=== PATIENT | female | born 1980 | race Caucasian/White ===

== ENCOUNTER 2016-12-16 17:08 | Outpatient (CLI) | payer OTHER | END 2016-12-16 17:09 | disposition home or self-care (01) | DX: R07.89 Other chest pain (principal) ==

== ENCOUNTER 2018-01-05 10:25 | Day surgery (SDC) | payer OTHER ==
[~2018-01-05 10:25] MED LIST: BACITRACIN OINT TOP ONE; BUPIVACAINE 0.25% PF 30 ML VIAL ONE; LIDOCAINE 1% 50 ML MDV ONE; LIDOCAINE MPF 1%-EPI 1:200000 30 ML VIAL ONE; ceFAZolin 2 GM/50 ML 2 GM/50 ML BAG IV ONE
[2018-01-05 10:48] LABS: HCG UR QUAL NEGATIVE
[2018-01-05] MEDS ORDERED: LACTATED RINGERS 1,000 ML IV ONE ×2 (10:49→14:00)
[2018-01-05] MEDS ORDERED: LIDOCAINE MPF 1%-EPI 1:200000 30 ML VIAL SUBQ ONE (14:05)
[2018-01-05] MEDS ORDERED: BACITRACIN ZINC OINT 15 GM TOP ONE (14:05)
[2018-01-05] MEDS ORDERED: BUPIVACAINE 0.25% PF 30 ML VIAL SUBQ ONE ×2 (14:05)
[2018-01-05] MEDS ORDERED: PROPOFOL 200 MG/20 ML VIAL IVP ONE (14:17)
[2018-01-05] MEDS ORDERED: LIDOCAINE-MPF 2% 5 ML VIAL IM ONE (14:17)
--- NOTE | 2018-01-05 14:46 | OPERATIVE REPORT ---
Operative Report - General Procedure Date: 01/05/18 Pre-Op Diagnosis: anal skin tags, external hemorrhoids Procedure Performed: Excision of anal skin tags and external hemorrhoids - Procedure Note Primary Surgeon: Hannah Estimated Blood Loss (mL): 5 - Other Other Information/Narrative: After obtaining informed consent from the patient she was brought into the operating room and positioned on the operating table in lithotomy position taking note of pressure points. She was administered sedation and IV antibiotics. She was prepped and draped in the usual sterile fashion and a timeout was taken according to protocol.The patient was not tolerating sedation well and kept moving prior to starting procedure and subsequently an LMA was placed. 30 cc of local anesthetic was injected. I then inspected to the anal canal and she was noted to have a large skin tag in the 12 o'clock position and external hemorrhoids in the right posterior and left lateral positions. A clamp was placed on the skin tag in the 12 o'clock position extending down to an external hemorrhoid. The skin tag and hemorrhoid were excised using a 15 blade to divide the skin and electrocautery to divide the underlying subcutaneous tissue. The incision was then closed with a running 3-0 chromic. The external hemorrhoids in the left lateral and right posterior positions were addressed in a similar manner by clamping the hemorrhoids and excising the skin with a 15 blade and the subcutaneous tissue with electrocautery. Both incisions were also closed with running 3-0 chromic. The anal cavity was then irrigated and hemostasis was noted to be achieved. The surgeon's finger was inserted into the anal canal ensuring adequate size opening of the anal canal in this was noted to have been achieved. Bacitracin fluffs and mesh underwear were then applied. The patient was subsequently taken to the recovery room in stable condition. Complications: None
[2018-01-05] MEDS ORDERED: ONDANSETRON 4 MG/2 ML VIAL ONE (14:51)
[2018-01-05] MEDS ORDERED: KETOROLAC 30 MG/ML VIAL ONE (15:21)
[2018-01-05] MEDS ORDERED: oxyCOD/ACETAMIN 5 MG/325 MG TABLET PO ONE (15:46)
[2018-01-05 16:01] VITALS: BP 122/79
== END 2018-01-05 10:26 | disposition home or self-care (01) ==
LOC: SDS 10:25
PROVIDERS: ATTEND Surgery
PROC: 06BY0ZC Excision of Hemorrhoidal Plexus, Open Approach (ICD-10-PCS; principal; 2018-01-05 11:45)
DX: K64.4 Residual hemorrhoidal skin tags (principal)
CPT/HCPCS: 46250; 81025; A9270; J0690; J7120

== ENCOUNTER 2021-01-01 08:00 | Outpatient (CLI) | payer OTHER ==
[2021-01-01 19:44] LABS: BASOPHILS % (AUTO) 0.5 %; EOSINOPHILS # (AUTO) 0.1 10^3/uL (0.0-0.7); EOSINOPHILS % (AUTO) 1.5 %; HGB - HEMOGLOBIN 13.7 g/dL (12.0-16.0); LYMPHOCYTES # (AUTO) 2.3 10^3/uL (1.5-3.5); LYMPHOCYTES % (AUTO) 39.1 %; MEAN CORPUSCULAR HEMOGLOBIN 30.2 pg (27.0-31.0); MEAN CORPUSCULAR HGB CONC 33.4 g/dL (32.0-36.0); MEAN CORPUSCULAR VOLUME 90.3 fL (81.0-99.0); MEAN PLATELET VOLUME 9.8 fL (7.9-10.8); MONOCYTES # (AUTO) 0.5 10^3/uL (0.0-1.0); MONOCYTES % (AUTO) 8.5 %; NEUTROPHILS # (AUTO) 2.9 10^3/uL (1.5-6.6); NEUTROPHILS % (AUTO) 50.1 %; PLT - PLATELET COUNT 317 10^3/uL (130-450); RED BLOOD COUNT 4.54 10^6/uL (4.20-5.40); RED CELL DISTRIBUTION WIDTH 13.4 % (12.0-15.0); WHITE BLOOD COUNT 5.9 x10^3/uL (4.8-10.8)
[2021-01-01 20:04] LABS: ALBUMIN 4.5 g/dL (3.2-5.5); ALBUMIN/GLOBULIN RATIO 1.4 (1.0-2.2); BILIRUBIN,TOTAL 0.2 mg/dL (0.2-1.0); CALCIUM 9.4 mg/dL (8.5-10.3); CREATININE 0.7 mg/dL (0.4-1.0); POTASSIUM 3.7 mmol/L (3.5-5.0); TOTAL PROTEIN 7.8 g/dL (6.7-8.2)
[2021-01-01 20:17] LABS: THYROID STIMULATING HORMONE 3.6 uIU/mL (0.34-5.60)
== END 2021-01-01 23:59 | disposition home or self-care (01) ==
LOC: LAB.S 08:00
PROVIDERS: ATTEND Physician Assistant Medical
DX: R00.2 Palpitations (principal)
CPT/HCPCS: 36415; 80053; 84443; 85025

== ENCOUNTER 2021-01-03 14:10 | Outpatient (CLI) | payer OTHER ==
--- NOTE | 2021-01-04 13:47 | XRAY Report ---
PROCEDURE: Shoulder 2 View LT INDICATIONS: SHOULDER IMPINGEMENT SYNDROME, LEFT TECHNIQUE: 3 views of the shoulder were acquired. COMPARISON: None. FINDINGS: Bones: No acute fractures or dislocations. Coracoclavicular and acromioclavicular intervals are main tained. No suspicious bony lesions. Visualized ribs appear intact. Soft tissues: No suspicious soft tissue calcifications. IMPRESSION: Left shoulder without acute radiographic abnormalities. No radiographic findings for sig nificant degenerative change. Consider further evaluation with MRI if there is concern for internal s oft tissue derangement. Reviewed by: Darci Mcdonough MD on 01/04/2021 1:46 PM PDT Approved by: Darci Mcdonough MD on 01/04/2021 1:46 PM PDT Station ID: [id number]
== END 2021-01-03 14:11 | disposition home or self-care (01) ==
LOC: DI.S 14:10
PROVIDERS: ATTEND Physician Assistant
DX: M75.42 Impingement syndrome of left shoulder (principal)

== ENCOUNTER 2021-02-28 13:16 | Outpatient (CLI) | payer OTHER ==
[2021-03-02 03:58] LABS: PROGESTERONE <0.5 ng/mL
[2021-03-02 04:17] LABS: ESTRADIOL 62 pg/mL
== END 2021-02-28 13:17 | disposition home or self-care (01) ==
LOC: LAB.S 13:16
PROVIDERS: ATTEND Physician Assistant
DX: Z78.0 Asymptomatic menopausal state (principal); R00.2 Palpitations
CPT/HCPCS: 36415; 82670; 83735; 84144

== ENCOUNTER 2022-12-27 08:00 | Outpatient (CLI) | payer BC, OTHER ==
[2022-12-27 23:01] LABS: BACTERIAL VAGINOSIS DNA POSITIVE (NEGATIVE); CANDIDA GLABRATA DNA NEGATIVE (NEGATIVE); CANDIDA GROUP DNA NEGATIVE (NEGATIVE); CANDIDA KRUSEI DNA NEGATIVE (NEGATIVE); TRICHOMONAS VAGINALIS DNA NEGATIVE (NEGATIVE)
== END 2022-12-27 23:59 | disposition home or self-care (01) ==
LOC: LAB 08:00
PROVIDERS: ATTEND Nurse Practitioner
DX: N90.89 Other specified noninflammatory disorders of vulva and perineum (principal)
CPT/HCPCS: 81514

== ENCOUNTER 2023-01-24 13:49 | Outpatient (CLI) | payer BC ==
--- NOTE | 2023-01-27 09:40 | Mammography Report ---
BILATERAL DIGITAL SCREENING MAMMOGRAM 3D/2D: 01/24/2023 CLINICAL: Routine screening. Comparison is made to exam dated: 01/05/2016 mammogram - [facility]. Both breasts are heterogeneously dense, which may obscure small masses (category c / 51-75% glandular tissue). No significant masses, calcifications, or other findings are seen in either breast. There has been no significant interval change. IMPRESSION: NEGATIVE There is no mammographic evidence of malignancy. A 1 year screening mammogram is recommended. Based on the Tyrer Cuzick model (a risk assessment model) the patients lifetime risk is 13.0% and he r 10 year risk is 2.1%. According to the ACR, ACS, and NCCN guidelines, an annual breast MRI exam baylee ng with mammogram is recommended if the patients lifetime risk is 20% or greater. This exam was interpreted at Station ID: [id number]. NOTE: For mammograms, a report in lay terms will be sent to the patient. Approximately 15% of breast malignancies will not be visualized mammographically. In the management of a palpable breast mass, a negative mammogram must not discourage biopsy of a clinically suspicious lesion. Electronically Signed By: Johnnie Castrejon M.D. acr/penrad:01/24/2023 16:40:36 letter sent: No_Letter ACR BI-RADS Category 1: Negative 3341F PARENCHYMAL PATTERN: (D) - The breast(s) demonstrate(s) heterogeneously dense fibroglandular parmaryy ma. BI-RADS CATEGORY: (1) - 1 Mammogram 20240125 1 year screening LATERALITY: (B)
== END 2023-01-24 13:50 | disposition home or self-care (01) ==
LOC: DI 13:49
DX: Z12.31 Encounter for screening mammogram for malignant neoplasm of breast (principal)